=== PATIENT | male | born 1965 | race Caucasian/White ===

== ENCOUNTER 2016-06-28 07:26 | Emergency (ER) | payer BC, OTHER ==
[~2016-06-28] VITALS: Ht 172.7 cm; Wt 74.8 kg
--- NOTE | 2016-06-28 07:35 | NUR ---
Pt c/o productive cough, headache, and generalized body aches x 2 days. Pt recently tx with Z-pack for similar symptoms with no improvement. Pt scheduled to fly to [place] on Wednesday until the following Wednesday and concerned about symptoms.
[2016-06-28 07:39] VITALS: BP 125/73; PULSE 98; RESP 20; TEMP 98.9; O2SAT 95
--- NOTE | 2016-06-28 07:44 | NUR ---
Dr. Mitchell in triage to assess pt.
[2016-06-28] MEDS ORDERED: PROMETHAZINE 6.25 MG/ CODEINE 10 MG/ 5 ML PO ONE (07:45)
[2016-06-28] MEDS ORDERED: KETOROLAC TROMETHAMINE 60 MG/2 ML VIAL IM ONE (07:45)
[2016-06-28] MEDS ORDERED: DEXAMETHASONE SOD PHOSPHATE 10 MG/ML VIAL IM ONE (07:45)
[2016-06-28 08:20] VITALS: BP 125/73; PULSE 87; RESP 20; TEMP 98.8; O2SAT 99
--- NOTE | 2016-06-28 08:20 | NUR ---
Patient given written and verbal discharge instructions and verbalizes understanding. ER MD discussed with patient the results and treatment provided. Patient in stable condition. ID arm band removed. Rx of Azithromycin, Promethizine with codeine, Prednisone, Motrin given. Patient educated on pain management and to follow up with PMD. Pain Scale 5/10, tolerable after medications. Opportunity for questions provided and answered.
== END 2016-06-28 08:20 | disposition home or self-care (01) ==
LOC: SED 07:26
DX: J20.9 Acute bronchitis, unspecified (principal)
CPT/HCPCS: 96372; 99284; J1100; J1885

== ENCOUNTER 2016-07-15 16:13 | Outpatient (CLI) | payer BC, OTHER | END 2016-07-15 18:42 | disposition home or self-care (01) | LOC: SRD 16:13 | PROVIDERS: ATTEND Family Medicine | DX: R05 Cough (principal) | CPT/HCPCS: 71020-TC ==

== ENCOUNTER 2016-09-04 11:14 | Emergency (ER) | payer BC, OTHER ==
[~2016-09-04] VITALS: Ht 172.7 cm; Wt 74.4 kg
[2016-09-04 11:30] VITALS: BP_SYST 125
[2016-09-04 12:45] VITALS: BP_SYST 122
== END 2016-09-04 12:44 | disposition home or self-care (01) ==
LOC: SED 11:14
DX: R21 Rash and other nonspecific skin eruption (principal); F17.200 Nicotine dependence, unspecified, uncomplicated
CPT/HCPCS: 99283